=== PATIENT | female | born 1960 | race Caucasian/White ===

== ENCOUNTER 2022-03-05 21:07 | Inpatient (IN) | payer BC, MEDICAID ==
[~2022-03-05] VITALS: Ht 162.6 cm; Wt 81.3 kg
[2022-03-05] MEDS ORDERED: ONDANSETRON HCL 4MG/2ML INJ IV STA (21:35)
[2022-03-05] MEDS ORDERED: MAGNESIUM/ALUMINUM HYDROXIDE/SIMETHICONE 30ML UDC PO ONE (21:45)
[2022-03-05] MEDS ORDERED: VISCOUS LIDOCAINE 2% 15 ML UDC PO ONE (21:45)
[2022-03-05] MEDS ORDERED: ASPIRIN 325MG EC TABLET PO ONE (22:00)
[2022-03-05] MEDS ORDERED: MORPHINE SULFATE 4 MG/ML CPJ (NOT FOR IM USE) IV ONE (22:00)
[2022-03-05 22:10] LABS: BASOPHILS % 0.8 % (0.0-2.0); EOSINOPHILS % 0.7 % (0.0-5.0); HEMATOCRIT. 39.2 % (36.0-48.0); HEMOGLOBIN. 12.9 g/dL (12.0-16.0); LYMPHOCYTES % 7.1 % (20.0-50.0); MEAN CORPUSCULAR HEMOGLOBIN 29.6 pg (28.0-32.0); MEAN CORPUSCULAR VOLUME 90.1 fL (81.0-99.0); NEUTROPHILS % 80.4 % (40.0-76.0); PLATELET 174 x1000/uL (130-400); RED BLOOD CELL COUNT 4.35 mill/uL (4.2-5.4); RED CELL DISTRIBUTION WIDTH 13.6 % (11.6-14.6)
[2022-03-05 22:13] LABS: CHLORIDE 109 mEq/L (98-107)
[2022-03-05 22:25] LABS: ETHANOL BLOOD < 10 mg/dL
[2022-03-05] MEDS ORDERED: FUROSEMIDE 40MG/4ML VIAL IVP ONE (23:45)
[2022-03-05] MEDS ORDERED: METOCLOPRAMIDE HCL 10MG/2ML VIAL IV ONE (23:45)
[2022-03-06 00:57] LABS: *AMPHETAMINES SCREEN URINE NEGATIVE (NEGATIVE); *BARBITURATES SCREEN URINE NEGATIVE (NEGATIVE); *BENZODIAZEPINES SCREEN URINE NEGATIVE (NEGATIVE); *COCAINE SCREEN URINE NEGATIVE (NEGATIVE); CANNABINOID URINE SCREEN NEGATIVE (NEGATIVE); METHADONE URINE SCREEN NEGATIVE (NEGATIVE); OPIATES URINE SCREEN PRESUMTIVE POSITIVE (NEGATIVE); PHENCYCLIDINE URINE SCREEN NEGATIVE (NEGATIVE)
[2022-03-06] MEDS ORDERED: ACETAMINOPHEN 325MG TABLET PO PRN (01:00)
[2022-03-06] MEDS ORDERED: DEXTROSE 50% WATER 50ML SYRINGE IV PRN (01:00)
[2022-03-06] MEDS: LIDOCAINE 5% PATCH TOP SCH ×2 (01:15→09:00)
[2022-03-06] MEDS ORDERED: MORPHINE SULFATE 2 MG/ML CPJ (NOT FOR IM USE) IV ONE (01:15)
[2022-03-06] MEDS ORDERED: ENOXAPARIN 80MG/0.8ML SYR SUBCUT NR (01:30)
[2022-03-06 03:50] VITALS: BP 119/78
[2022-03-06] MEDS ORDERED: LEVO125T8 MT (05:09)
[2022-03-06] MEDS ORDERED: SITA100T11 MT (05:09)
[2022-03-06] MEDS ORDERED: IBUP-2741 MT (05:09)
[2022-03-06] MEDS: BLOOD SUGAR DIAGNOSTIC STRIP TEST SCH ×4 (06:03→22:10)
[2022-03-06] MEDS: INSULIN LISPRO 100 UNITS/ML SUBCUT SCH ×4 (07:50→22:10)
[2022-03-06 08:00] VITALS: BP 128/78
[2022-03-06] MEDS: ASPIRIN 81MG EC TABLET PO SCH (09:12)
[2022-03-06] MEDS: FUROSEMIDE 40MG/4ML VIAL IVP SCH (09:21)
[2022-03-06 10:08] LABS: CLARITY URINE CLEAR (CLEAR); COLOR URINE YELLOW (YELLOW); KETONES URINE NEGATIVE (NEGATIVE); LEUKOCYTE ESTERASE URINE NEGATIVE (NEGATIVE); NITRITE URINE NEGATIVE (NEGATIVE); OCCULT BLOOD URINE NEGATIVE (NEGATIVE); PH URINE 5.5 (4.5-8.0); PROTEIN URINE NEGATIVE (NEGATIVE); SPECIFIC GRAVITY URINE 1.017 (1.005-1.030); UROBILINOGEN URINE 0.2 E.U./dL (0.2-1.0)
[2022-03-06 10:16] LABS: CREATINE KINASE MB FRACTION 3.8 ng/mL (0.5-3.6)
[2022-03-06 12:00] VITALS: BP 114/63
[2022-03-06] MEDS: LEVOTHYROXINE SODIUM 125MCG TABLET PO SCH (12:54)
[2022-03-06 15:06] LABS: *AMPHETAMINES SCREEN URINE NEGATIVE (NEGATIVE); *BARBITURATES SCREEN URINE NEGATIVE (NEGATIVE); *BENZODIAZEPINES SCREEN URINE NEGATIVE (NEGATIVE); *COCAINE SCREEN URINE NEGATIVE (NEGATIVE); CANNABINOID URINE SCREEN NEGATIVE (NEGATIVE); METHADONE URINE SCREEN NEGATIVE (NEGATIVE); OPIATES URINE SCREEN NEGATIVE (NEGATIVE); PHENCYCLIDINE URINE SCREEN NEGATIVE (NEGATIVE)
[2022-03-06 18:38] VITALS: BP 113/69
[2022-03-06 20:00] VITALS: BP 92/56
[2022-03-06] MEDS: METOPROLOL TARTRATE 25MG TABLET PO SCH (21:00)
[2022-03-06] MEDS: ATORVASTATIN CALCIUM 40MG TABLET PO SCH (21:11)
[2022-03-07] VITALS (7 sets, daily range): BP systolic 102–129; BP diastolic 62–78
[2022-03-07] MEDS: LEVOTHYROXINE SODIUM 125MCG TABLET PO SCH (06:40)
[2022-03-07] MEDS: INSULIN LISPRO 100 UNITS/ML SUBCUT SCH ×4 (06:48→21:00)
[2022-03-07] MEDS: BLOOD SUGAR DIAGNOSTIC STRIP TEST SCH ×4 (06:48→21:00)
[2022-03-07 07:12] LABS: HEMATOCRIT. 40.8 % (36.0-48.0); HEMOGLOBIN. 13.9 g/dL (12.0-16.0); MEAN CORPUSCULAR VOLUME 88.1 fL (81.0-99.0); MEAN PLATELET VOLUME 9.4 fl (7.4-10.4); PLATELET 151 x1000/uL (130-400); RED BLOOD CELL COUNT 4.63 mill/uL (4.2-5.4); RED CELL DISTRIBUTION WIDTH 13.2 % (11.6-14.6)
[2022-03-07] MEDS: METOPROLOL TARTRATE 25MG TABLET PO SCH ×3 (08:00→21:29)
[2022-03-07] MEDS: ASPIRIN 81MG EC TABLET PO SCH (08:00)
[2022-03-07] MEDS: LINAGLIPTIN 5MG TABLET PO SCH ×2 (08:00→10:36)
[2022-03-07 08:39] LABS: CHLORIDE 102 mEq/L (98-107)
[2022-03-07 08:50] LABS: HDL CHOLESTEROL 54 mg/dL (40-59); LDL CHOLESTEROL 130 mg/dL (5-100)
[2022-03-07] MEDS ORDERED: MEDICATION NOT ON FORMULARY EA (Sitagliptin Phosphate (Januvia) 1 TAB) MT SCH (09:00)
[2022-03-07] MEDS: FUROSEMIDE 40MG/4ML VIAL IVP SCH (10:36)
[2022-03-07 11:28] LABS: PLATELET ESTIMATE NORMAL
[2022-03-07] MEDS: NICOTINE 14MG PATCH TD SCH (15:14)
[2022-03-07 16:20] LABS: HEMATOCRIT. 42.7 % (36.0-48.0); HEMOGLOBIN. 14.2 g/dL (12.0-16.0); MEAN CORPUSCULAR HEMOGLOBIN 29.8 pg (28.0-32.0); MEAN CORPUSCULAR VOLUME 89.5 fL (81.0-99.0); MEAN PLATELET VOLUME 8.9 fl (7.4-10.4); PLATELET 152 x1000/uL (130-400); RED BLOOD CELL COUNT 4.77 mill/uL (4.2-5.4); RED CELL DISTRIBUTION WIDTH 13.4 % (11.6-14.6)
[2022-03-07 16:48] LABS: CHLORIDE 102 mEq/L (98-107)
[2022-03-07] MEDS: ATORVASTATIN CALCIUM 40MG TABLET PO SCH (21:29)
[2022-03-07 22:45] LABS: PLATELET ESTIMATE NORMAL
[2022-03-08] VITALS: BP 106/65
[2022-03-08 04:00] VITALS: BP 105/68
[2022-03-08] MEDS: LEVOTHYROXINE SODIUM 125MCG TABLET PO SCH (06:02)
[2022-03-08] MEDS: INSULIN LISPRO 100 UNITS/ML SUBCUT SCH ×2 (06:04→12:10)
[2022-03-08] MEDS: BLOOD SUGAR DIAGNOSTIC STRIP TEST SCH ×2 (06:04→11:40)
[2022-03-08 08:00] VITALS: BP 111/76
[2022-03-08] MEDS: ASPIRIN 81MG EC TABLET PO SCH (08:59)
[2022-03-08] MEDS: LINAGLIPTIN 5MG TABLET PO SCH (08:59)
[2022-03-08] MEDS: FUROSEMIDE 40MG/4ML VIAL IVP SCH (09:00)
[2022-03-08] MEDS: NICOTINE 14MG PATCH TD SCH (09:00)
[2022-03-08] MEDS: METOPROLOL TARTRATE 25MG TABLET PO SCH (09:00)
[2022-03-08] MEDS ORDERED: METO25TA6 PO (10:21)
[2022-03-08] MEDS ORDERED: NICO-681 TD (10:21)
[2022-03-08] MEDS ORDERED: ASPI-1406 PO (10:21)
[2022-03-08] MEDS ORDERED: LIP40 PO (10:21)
[2022-03-08 12:00] VITALS: BP 90/61
[2022-03-08 12:49] VITALS: BP 90/61
== END 2022-03-08 14:08 | disposition home or self-care (01) | DRG 280 ==
LOC: ER 21:07 → 6WST 03-06 00:54 → ENRESERV 03-06 01:14 → 7EST 03-07 02:45
PROVIDERS: ADMIT Family Medicine; ATTEND Family Medicine
DX: I21.4 Non-ST elevation (NSTEMI) myocardial infarction (principal); U07.1 COVID-19; I35.0 Nonrheumatic aortic (valve) stenosis; I50.9 Heart failure, unspecified; E11.9 Type 2 diabetes mellitus without complications; E78.5 Hyperlipidemia, unspecified; F17.210 Nicotine dependence, cigarettes, uncomplicated; I11.0 Hypertensive heart disease with heart failure; Z82.49 Family history of ischemic heart disease and other diseases of the circulatory system; Z83.3 Family history of diabetes mellitus; Z85.42 Personal history of malignant neoplasm of other parts of uterus; Z85.850 Personal history of malignant neoplasm of thyroid; Z90.710 Acquired absence of both cervix and uterus; Z88.6 Allergy status to analgesic agent
CPT/HCPCS: 36415; 71045; 80053; 80061; 80305; 80320; 81003; 82550; 82553; 82962; 83036; 83880; 84484; 85025; 87426; 93005; 93306; 99291; J1815; J1940; J2270; J2405; J2765; G0480